=== PATIENT | male | born 1995 | race American Indian/Alaskan Native ===

== ENCOUNTER 2019-01-22 15:24 | Emergency (ER) | payer BC ==
--- NOTE | 2019-01-22 16:19 | EDM.PDOC ---
<Andrés Baker - Last Filed: 01/22/19 16:44> ED HPI GENERAL MEDICAL PROBLEM - General Chief Complaint: Eye Problems Stated Complaint: L EYE IRRITATION Time Seen by Provider: 01/22/19 16:15 - History of Present Illness INITIAL COMMENTS - FREE TEXT/NARRATIVE: Calista Rollins is a 23 year old male who presents to the ED with left eye irritation for the last 2 day. He states that he was changing the valve on a machine that had air pressure behind it and when he opened it, dirt and debris flew up into his eye. He states that the machine had only air pressure and no fluid pressure in it. He also states that he wears safety glasses when he works. Shortly after the debris flew into his eye, he states that he did go and use an eye heel seat pounder to wash out his eye. He states that he did get some mild relief after the first wash. He did see a foreign body in his eye and he has tried using eye irrigation and heat packs on his eye. He states that his eye has been very red yesterday and today and when he woke up this morning his eye was crusted close. He also has noted that he starts to develop blurry vision by the end of the day. - Related Data Allergies Allergy/AdvReac Type Severity Reaction Status Date / Time No Known Allergies Allergy Verified 01/22/19 15:33 Home Meds: Home Meds . [No Known Home Meds] 01/22/19 [History] Past Medical History - Past Health History Medical/Surgical History: Denies Medical/Surgical History Social & Family History - Tobacco Use Smoking Status *Q: Never Smoker Second Hand Smoke Exposure: No - Caffeine Use Caffeine Use: Reports: Coffee - Recreational Drug Use Recreational Drug Use: No ED ROS GENERAL - Review of Systems Constitutional: Reports: No Symptoms HEENT: Reports: Eye Pain, Vision Change, Other (Pain with occular movement). Denies: Contact Lenses, Glasses Respiratory: Reports: No Symptoms Cardiovascular: Reports: No Symptoms Musculoskeletal: Reports: No Symptoms ED EXAM GENERAL W FULL EYE - Physical Exam Exam Limited By: No Limitations General Appearance: Alert, WD/WN, No Apparent Distress Eyelids: Left: Edema, Erythema Conjunctiva & Sclera: Right: Normal Appearance, Left: Discharge (Mild), Foreign Body Cornea Exam: Right: Normal Appearance, Left: Foreign Body (In the 5 o'clock position) Extraocular Movements: Bilateral: Intact Pupils: Normal Accommodation Respiratory/Chest: No Respiratory Distress, Lungs Clear, Normal Breath Sounds, No Accessory Muscle Use, Chest Non-Tender Cardiovascular: Normal Peripheral Pulses, Regular Rate, Rhythm, No Edema, No Gallop, No JVD, No Murmur, No Rub ED EYE w/ Add Procedure - Eye Procedure Alcaine Drops Administered: Yes Eye FB Removal: Removal w/ Needle (Removal w/ spatula), Other Course - Vital Signs Last Recorded V/S: Last Vital Signs Temp 98 F 01/22/19 15:31 Pulse 98 01/22/19 15:31 Resp 16 01/22/19 15:31 BP 155/89 H 01/22/19 15:31 Pulse Ox 98 01/22/19 15:31 Departure - Departure Disposition: Home, Self-Care 01 Clinical Impression: Foreign body in cornea, left eye, initial encounter - Discharge Information Instructions: Eye Foreign Body, [id number] Referrals: PCP,None [Primary Care Provider] - Forms: ED Department Discharge Additional Instructions: alternate tylenol and ibuprofen as needed for discomfort. This will take about 24 to 48 hours to heal, Follow up with an eye doctor of your choice if not getting back to normal by as expected. Return to ED as needed. <Chi Adams L - Last Filed: 01/22/19 20:25> ED ROS GENERAL - Review of Systems Review Of Systems: See Below ED EXAM GENERAL W FULL EYE - Physical Exam Exam: See Below ED EYE w/ Add Procedure - Eye Procedure Eye FB Removal: Other (removed with eye spud without difficulty, patien tolerated procedure well) Course - Re-Assessments/Exams Free Text/Narrative Re-Assessment/Exam: 01/22/19 20:22 Initial exam was done by SHELLI [employer] student. I agree with hx and exam as documented. He did have foreign body L cornea removed by myself, no complications. Departure - Departure Time of Disposition: 16:21 Condition: Fair
== END 2019-01-22 16:32 | disposition home or self-care (01) ==
LOC: JD.ED 15:24
DX: T15.02XA Foreign body in cornea, left eye, initial encounter (principal); X58.XXXA Exposure to other specified factors, initial encounter
CPT/HCPCS: 65220; 65222; 99283